=== PATIENT | male | born 1975 | race Caucasian/White ===

== ENCOUNTER 2020-02-25 23:55 | Emergency (ER) | payer OTHER ==
[~2020-02-25] VITALS: Ht 175.3 cm; Wt 88.5 kg
[2020-02-25 23:56] VITALS: BP 137/78
--- NOTE | 2020-02-26 | NUR ---
PT IN CHAIR A WITH PD
--- NOTE | 2020-02-26 00:04 | NUR ---
44 Y/O MALE BIB PD FOR PRE BOOK S/P DUI. PT WAS AT POLICE STATION AND BLOOD PRESSURE WAS IN THE 200S/100S. PT DENIES ANY HEADACHE, VISUAL CHANGES AT THIS TIME. DENIES ANY COUGH/SOB/ CHILLS/ FEVER PMH: HTN NKA
[2020-02-26 00:06] VITALS: BP 137/78
--- NOTE | 2020-02-26 00:06 | NUR ---
Patient discharged with v/s stable. Written and verbal after care instructions given and explained. Patient verbalized understanding. Police with in custody. All questions addressed prior to discharge. Advised to follow up with PMD.
== END 2020-02-26 00:06 ==
LOC: MED 23:55
DX: I10 Essential (primary) hypertension (principal); Z02.89 Encounter for other administrative examinations
CPT/HCPCS: 99283